=== PATIENT | female | born 2000 | race Caucasian/White ===

== ENCOUNTER 2021-08-27 07:12 | Inpatient (IN) ==
[2021-08-27] MEDS ORDERED: Famotidine 20 MG/2 ML VIAL IVP PRN (08:53)
[2021-08-27] MEDS ORDERED: Naloxone 0.4 MG/ML INJ IVP PRN ×2 (08:53→09:47)
[2021-08-27] MEDS ORDERED: Metoclopramide 10 MG/2 ML VIAL IVP PRN (08:53)
[2021-08-27 09:36] LABS: Basophils % 0.2 %; Eosinophils # 0.2 K/mcL (0.0-0.6); Eosinophils % 1.4 %; Hematocrit 35.3 % (35.3-44.9); Hemoglobin 11.1 g/dL (11.5-15.4); Immature Granulocytes % 0.8 % (0-4); Lymphocytes # 2.5 K/mcL (0.6-4.6); Lymphocytes % 16.1 %; Mean Corpuscular HGB Conc 31.4 g/dL (31.6-35.5); Mean Corpuscular Hemoglobin 24.7 pg (28.0-33.3); Mean Corpuscular Volume 78.6 fL (83.0-100.0); Mean Platelet Volume 10.7 fL (9.4-12.4); Monocytes % 6.5 %; Neutrophils # 11.5 K/mcL (1.6-8.9); Platelet Count 373 K/mcL (140-400); Red Blood Count 4.49 M/mcL (3.82-4.97); White Blood Count 15.3 K/mcL (4.3-11.1)
[2021-08-27 09:47] LABS: Creatinine,Urine 185 mg/dL
[2021-08-27] MEDS ORDERED: *HR* FentaNYL (PF) 100 MCG/2 ML VIAL EP ONE (09:47)
[2021-08-27] MEDS ORDERED: Ropivacaine/PF 0.2% 20 ML VIAL EP ONE (09:47)
[2021-08-27] MEDS ORDERED: EPHEDrine 50 MG/ML VIAL IVP PRN (09:47)
[2021-08-27] MEDS ORDERED: Ondansetron 4 MG/2 ML VIAL IVP PRN (09:47)
[2021-08-27] MEDS ORDERED: Epidural Premix (fent/bupiv) 110 ML EP SCH (10:00)
[2021-08-27 10:20] LABS: Alanine Aminotransferase 10 Units/L (7-52); Aspartate Amino Transferase 15 Units/L (13-39); BUN/Creatinine Ratio 21 (6-26); Blood Urea Nitrogen 12 mg/dL (6-20); Lactate Dehydrogenase 177 Units/L (140-271); eGFR For African Americans > 60 (> 60); eGFR For Non-African Americans > 60 (> 60)
[2021-08-27] MEDS ORDERED: Ringers Solution, Lactated 1,000 ML ONE ×2 (11:16→11:40)
[2021-08-27 12:01] LABS: Influenza A PCR Negative (Negative); Influenza B PCR Negative (Negative); Resp. Syncytial Virus PCR Negative (Negative); SARS-CoV-2 by PCR (In House) Negative (Negative)
[2021-08-27] MEDS ORDERED: Oxytocin 20 units/ LR 1000 mL 20 UNIT/1,000 ML BAG IVC ONE (16:26)
[2021-08-27 17:59] LABS: Amphetamine Screen,Urine Negative ng/mL (Cutoff=1000); Barbiturate Screen,Urine Negative ng/mL (Cutoff=200); Benzodiazepines Screen,Urine Negative ng/mL (Cutoff=200); Cannabinoid Screen,Urine Negative ng/mL (Cutoff = 50); Cocaine Screen,Urine Negative ng/mL (Cutoff= 300); Opiate Screen,Urine Negative ng/mL (Cutoff=300); Phencyclidine Screen,Urine Negative ng/mL (Cutoff=25)
[2021-08-27] MEDS ORDERED: miSOPROStoL 100 MCG TABLET RC ONE (18:54)
[2021-08-27] MEDS ORDERED: Oxytocin 20 units/ LR 1000 mL 20 UNIT/1,000 ML BAG IVC SCH (20:32)
[2021-08-27] MEDS ORDERED: Benzocaine/Menthol 56 GM AEROSOL SPRAY TP PRN (20:32)
[2021-08-27] MEDS ORDERED: Measles/Mumps/Rubella Vacc 0.5 ML VIAL SQ PRN (20:32)
[2021-08-27] MEDS ORDERED: Lanolin 7 G OINT...G. TP PRN (20:32)
[2021-08-27] MEDS ORDERED: Rho Immune Globulin 1,500 UNIT SYRINGE IM PRN (20:32)
[2021-08-27] MEDS ORDERED: Ondansetron ODT 4 MG TAB.RAPDIS SL PRN (20:32)
[2021-08-27] MEDS: Acetaminophen 325 MG TABLET PO SCH (20:49)
[2021-08-27] MEDS: Ibuprofen 600 MG TABLET PO SCH (23:23)
[2021-08-28 07:46] VITALS: BP 126/82; PULSE 89; TEMP 98.4; O2SAT 99
[2021-08-28] MEDS: Ibuprofen 600 MG TABLET PO SCH ×2 (08:04→18:44)
[2021-08-28] MEDS: Acetaminophen 325 MG TABLET PO SCH ×2 (08:04→18:43)
[2021-08-28] MEDS ORDERED: Prenatal Vit/FA 1 EACH TABLET PO SCH (09:00)
== END 2021-08-28 20:30 | disposition home or self-care (01) | DRG 807 ==
LOC: 1NENULAB → OBSVTOIN 07:12 → 1NENUOBS 21:59
PROVIDERS: ADMIT Registered Nurse; ATTEND Registered Nurse